=== PATIENT | female | born 1985 | race Hispanic/Latino ===

== ENCOUNTER 2017-03-09 20:40 | Emergency (ER) | payer OTHER, SELFPAY ==
[2017-03-09 21:15] LABS: Bilirubin Negative (Negative); Blood, Urine Large (Negative); Glucose, Urine (Dipstick) Negative (Negative); Ketone, Urine Trace mg/dL (Negative); Nitrite Negative (Negative); Protein, Urine (Dipstick) 100 mg/dL (Neg-Trace); Urobilinogen 0.2 mg/dL (0.2-1.0)
[2017-03-09 21:16] LABS: Bacteria/HPF None Seen HPF (None Seen); Hyaline Casts/LPF 0-3 HYALINE CAST LPF (0-3 Hyaline); RBC/HPF GREATER THAN 50-TNTC HPF (0-3)
[2017-03-09 21:47] LABS: #Basophils 0.1 thou/uL (0.0-0.2); #Eosinphils 0.1 thou/uL (0.0-0.7); #Lymphocytes 4.5 thou/uL (1.20-3.40); #Neutrophils 6.6 thou/uL (1.40-6.50); %Basophils 0.9 % (0.0-1.0); %Eosinophils 1.1 % (0.0-10.0); %Lymphocytes 36.5 % (21.0-51.0); %Monocytes 8.2 % (0.0-10.0); Mean Platelet Volume 7.1 fL (7.4-10.4); Red Blood Cell (RBC) Count 3.84 mill/uL (4.20-5.40); White Blood Cell (WBC) Count 12.3 thou/uL (4.8-10.8)
[2017-03-09 22:04] LABS: PTT 33.8 SEC (22.9-36.1); Prothrombin Time 13.7 SEC (12.0-14.7)
[2017-03-09 22:16] LABS: Anion Gap 13 mmol/L (10-20); BUN (Urea Nitrogen) 14 mg/dL (7.0-18.7); Calc. Creatinine Clearance 0 mL/min (70-130); Calcium 9.6 mg/dL (7.8-10.44); Carbon Dioxide 24 mmol/L (22-29); Chloride 106 mmol/L (98-107); Estimated GFR-MDRD Greater than 90; Lipase 25 U/L (8-78)
--- NOTE | 2017-03-10 08:25 | ULT ---
PRELIMINARY REPORT/[facility]/EMERGENCY AFTER HOURS PROCEDURE: EXAM: US Pelvis Complete CLINICAL HISTORY: 31 years old, female; Pain and signs and symptoms; Menstruation abnormalities; Excessive menstruatio n; With irregular cycle; Pelvic pain; Patient HX: Vaginal bleeding x 4 months TECHNIQUE: Real-time pelvic ultrasound (complete) with image documentation. COMPARISON: No relevant prior studies available. FINDINGS: The uterus measures 8.6 cm in length. The uterus is retroflexed. Subtle hypoechoic region in the uterine fundus may represent a small fibroid, measuring 21 x 14 x 15 mm. There is no intrauterine fluid. Endometrial thickness is 6.7 mm. There is no free pelvic fluid. Large cystic lesion in the left ovary, measuring 5.9 x 5.0 x 5.4 cm on endovaginal scanning. No obvi ous septations or solid components visible on the provided images. This is larger than expected for a physiologic cyst, although that is not entirely excluded. Other e tiologies should be considered, including cystic ovarian neoplasm. Appropriate gynecological workup/followup recommended to exclude neoplasm/malignancy. The right ovary contains a 15 x 13 x 14 mm dominant follicle versus very small cyst. Significance un likely due to small size. Blood flow detected in each ovary. The urinary bladder was not completely evaluated/imaged at this time. IMPRESSION: Large simple appearing cystic lesion in the left ovary, measuring 5.9 x 5.0 x 5.4 cm. See additional details/discussion above. Appropriate gynecological workup/followup recommended to exclude neoplasm/malignancy. The right ovary contains a 15 x 13 x 14 mm dominant follicle versus very small cyst. Significance un likely due to small size. Possible small uterine fibroid, details above. Other details discussed above. EXAM: US Pelvis, Transvaginal CLINICAL HISTORY: 31 years old, female; Pain and signs and symptoms; Menstruation abnormalities; Excessive menstruatio n; With irregular cycle; Pelvic pain; Patient HX: Vaginal bleeding x 4 months TECHNIQUE: Real-time transvaginal pelvic ultrasound (complete) with image documentation. Transvaginal imaging w as used for better evaluation of the endometrium and adnexa. COMPARISON: No relevant prior studies available. FINDINGS: The uterus measures 8.6 cm in length. The uterus is retroflexed. Subtle hypoechoic region in the uterine fundus may represent a small fibroid, measuring 21 x 14 x 15 mm. There is no intrauterine fluid. Endometrial thickness is 6.7 mm. There is no free pelvic fluid. Large cystic lesion in the left ovary, measuring 5.9 x 5.0 x 5.4 cm on endovaginal scanning. No obvi ous septations or solid components visible on the provided images. This is larger than expected for a physiologic cyst, although that is not entirely excluded. Other e tiologies should be considered, including cystic ovarian neoplasm. Appropriate gynecological workup/followup recommended to exclude neoplasm/malignancy. The right ovary contains a 15 x 13 x 14 mm dominant follicle versus very small cyst. Significance un likely due to small size. Blood flow detected in each ovary. The urinary bladder was not completely evaluated/imaged at this time. Endovaginal scanning provided better visualization/evaluation of the endometrium/myometrium and ovar lea/adnexal findings discussed above. IMPRESSION: Large simple appearing cystic lesion in the left ovary, measuring 5.9 x 5.0 x 5.4 cm. See additional details/discussion above. Appropriate gynecological workup/followup recommended to exclude neoplasm/malignancy. The right ovary contains a 15 x 13 x 14 mm dominant follicle versus very small cyst. Significance un likely due to small size. Possible small uterine fibroid, details above. Other details discussed above. Thank you for allowing us to participate in the care of your patient. Dictated and Authenticated by: Iain Morales MD 03/10/2017 12:26 AM Central Time ([place] \T\ [place]) FINAL REPORT PELVIC ULTRASOUND WITH DOPPLER: (transabdominal, transvaginal, mohamud scale, color flow, and spectral Doppler) FINDINGS/IMPRESSION: I agree with the preliminary report given by Dr. Iain Morales of [facility]. POS: [facility]
== END 2017-03-10 00:51 | disposition home or self-care (01) ==
LOC: ERS 20:40
DX: N83.201 Unspecified ovarian cyst, right side (principal); N92.0 Excessive and frequent menstruation with regular cycle; E05.90 Thyrotoxicosis, unspecified without thyrotoxic crisis or storm; Z79.899 Other long term (current) drug therapy
CPT/HCPCS: 76856; 80048; 81003; 81015; 81025; 83690; 85025; 85610; 85730; 86850; 86900; 86901; 96374; J2270

== ENCOUNTER 2018-07-19 14:04 | Outpatient (CLI) | payer OTHER ==
--- NOTE | 2018-07-19 15:07 | ULT ---
THYROID ULTRASOUND: DATE: 07/19/2018. PROVIDED CLINICAL HISTORY: Thyroid nodule. FINDINGS: Comparison is made with the study dated 06/12/2016. Right thyroid lobe measures about 5.1 x 1.5 x 1.3 cm and demonstrates a stable hypoechoic nodule at the inferior pole measuring about 8 mm. No additio nal thyroid nodule is evident. Left thyroid lobe measures about 4.9 x 1.5 x 1.5 cm and demonstrates an unremarkable sonographic appe arance. IMPRESSION: Stable nonspecific subcentimeter right thyroid lobe nodule. POS: [facility]
== END 2018-07-19 14:05 | disposition home or self-care (01) ==
LOC: BICULT 14:04
PROVIDERS: ATTEND Family Medicine
DX: E04.1 Nontoxic single thyroid nodule (principal)
CPT/HCPCS: 76536